=== PATIENT | female | born 1965 | race Caucasian/White ===

== ENCOUNTER 2016-08-24 07:00 | Inpatient (IN) | payer OTHER ==
[~2016-08-24] VITALS: Ht 165.1 cm; Wt 78.0 kg
[2016-08-25] VITALS (14 sets, daily range): BP systolic 128–165; BP diastolic 84–100
[2016-08-25] MEDS ORDERED: ceFAZolin sod 1 GM in NS 55 ML IVPB ONE (08:00)
[2016-08-25] MEDS ORDERED: Dexamethasone 20mg/5ml IVP ONE (08:00)
[2016-08-25] MEDS ORDERED: Naloxone 0.4mg/ml Inj IVP PRN (11:45)
[2016-08-25] MEDS ORDERED: AMLODIPINE BES2.5 MG ORAL (13:23)
[2016-08-25] MEDS ORDERED: XANAX2 MG ORAL (13:23)
[2016-08-25] MEDS ORDERED: AMBIEN10 M1 ORAL (13:23)
[2016-08-25] MEDS ORDERED: ROXICODONE30 M1 ORAL (13:23)
[2016-08-25] MEDS ORDERED: ADDERAL20 MG ORAL (13:24)
[2016-08-25] MEDS ORDERED: Thrombin 5000 units TOPIC ONE (13:38)
[2016-08-25] MEDS ORDERED: Bupivacaine 0.5% Inj 30 ml vial INJ ONE (13:39)
[2016-08-25] MEDS ORDERED: Bacitracin 50000 Units Vial ONE (13:39)
[2016-08-25] MEDS ORDERED: Vancomycin 1gm inj IVPB ONE (13:39)
[2016-08-25 13:45] LABS: APPEARANCE,URINE CLEAR; KETONES,URINE NEGATIVE (NEGATIVE); LEUKOCYTE ESTERASE ,URINE NEGATIVE (NEGATIVE); NITRITE,URINE NEGATIVE (NEGATIVE); PH,URINE 6 (4.5-8.0); PROTEIN,URINE NEGATIVE (NEGATIVE); UROBILINOGEN,URINE NORMAL MG/DL (0.0-1.0)
[2016-08-25] MEDS ORDERED: Lidocaine 1% Plain 30 ml INJ ONE ×2 (13:47→15:00)
[2016-08-25] MEDS ORDERED: Ropivacaine 5mg/ml Vial 20ml INJ ONE (13:48)
[2016-08-25 13:59] LABS: BACTERIA,URINE FEW /HPF; MUCUS,URINE FEW /LPF (NONE/OCC); SQUAMOUS EPITHELIAL CELL,UR FEW /LPF (NONE/OCC); WBC,URINE 0-2 /HPF (0 - 2)
[2016-08-25] MEDS ORDERED: oxyCODONE 5mg IR tab ORAL PRN ×3 (14:00)
[2016-08-25] MEDS ORDERED: PCA HYDROmorphone 1mg/ml 30 ML IV PRN (14:00)
[2016-08-25] MEDS ORDERED: traMADol 50mg tab ORAL PRN (14:00)
[2016-08-25] MEDS ORDERED: Zolpidem 5mg tab ORAL PRN (14:00)
[2016-08-25] MEDS ORDERED: Tylenol #3 tab (300mg/30mg) ORAL PRN (14:00)
[2016-08-25] MEDS ORDERED: ALPRAZolam 0.5mg tab ORAL PRN (14:00)
[2016-08-25] MEDS ORDERED: LR 1000ml 1,000 ML IVLG SCH (14:03)
--- NOTE | 2016-08-25 14:03 | Anethesia Preoperative Eval ---
Anesthesia Pre-op PMH/ROS General Date of Evaluation: Aug 25, 2016 Time of Evaluation: 14:56 Anesthesiologist: Khoi ASA Score: ASA 3 Mallampati Score Class I : Soft palate, uvula, fauces, pillars visible Class II: Soft palate, uvula, fauces visible Class III: Soft palate, base of uvula visible Class IV: Only hard plate visible Mallampati Classification: Class II Surgeon: Betsy Diagnosis: Neck Pain Surgical Procedure: ACDF C4-5,C5-6,C6-7 with plate Anesthesia History: none Social History: current smoker Family History: no anesthesia problems Allergies: Coded Allergies: No Known Allergies (Unverified , 08/24/16) Medications: see eMAR Past Medical History Cardiovascular: Reports: HTN Pulmonary: Reports: other - Smoker Gastrointestinal/Genitourinary: Reports: other - Hemorrhoids Neurologic/Psychiatric: Reports: depression/anxiety Musculoskeletal/Integumentary: Reports: DDD Anesthesia Pre-op Phys. Exam Physician Exam Last Vital Signs Date Time Temp Pulse Resp B/P Pulse Ox O2 Delivery O2 Flow Rate FiO2 08/25/16 13:12 97.8 94 20 128/84 100 Room Air Constitutional: NAD Neurologic: CN 2-12 intact Cardiovascular: RRR Respiratory: CTA Gastrointestinal: S/NT/ND Airway Exam Mallampati Score: Class II MO: full ROM: limited Teeth: intact Anesthesia Pre-op A/P Risk Assessment & Plan Assessment: ASA 3 Plan: GA, BIS, Glidescope Status Change Before Surgery: No Pre-Antibiotics Dru Grams Ancef IV Given Within 1 Hr of Incision: Yes Time Given: 15:26 Neal Westfall MD Aug 25, 2016 14:03
[2016-08-25] MEDS ORDERED: Surgicel 4in x 8in TOPIC ONE (14:07)
--- NOTE | 2016-08-25 14:07 | Immediate Post-Op Evaluation ---
Immediate Post-Op Evalulation Immediate Post-Op Evalulation Procedure: ACDF C4-5,C5-6, C6-7 Date of Evaluation: Aug 25, 2016 Time of Evaluation: 16:29 IV Fluids: 1000 LR Blood Products: 0 Estimated Blood Loss: 35 Urinary Output: 0 Blood Pressure Systolic: 147 Blood Pressure Diastolic: 100 Pulse Rate: 84 Respiratory Rate: 16 O2 Sat by Pulse Oximetry: 100 Temperature (Fahrenheit): 97 Pain Score (1-10): 3 Nausea: No Vomiting: No Complications 0 Patient Status: awake, reacts, patent, extubated, none Hydration Status: adequate Dru Grams Ancef IV Given Within 1 Hr of Incision: Yes Time Given: 15:26 Neal Westfall MD Aug 25, 2016 14:07
[2016-08-25] MEDS ORDERED: Midazolam 2mg/2ml Inj IVP PRN (14:15)
[2016-08-25] MEDS ORDERED: Metoclopramide 10mg/2ml Inj IVP PRN (14:15)
[2016-08-25] MEDS ORDERED: LORazepam Inj 2mg/ml 1ml IV PRN (14:15)
[2016-08-25] MEDS ORDERED: Oxycodone/Acetaminophen 5-325 ORAL PRN (14:15)
[2016-08-25] MEDS ORDERED: Norco 5mg/325mg tab ORAL PRN (14:15)
[2016-08-25] MEDS ORDERED: Ketorolac 60mg Inj IV PRN (14:15)
[2016-08-25] MEDS ORDERED: Ketorolac 30mg Inj IV PRN (14:15)
[2016-08-25] MEDS ORDERED: fentaNYL 100 mcg/2 mL IV PRN (14:15)
[2016-08-25] MEDS ORDERED: Norco 7.5mg/325mg tab ORAL PRN (14:15)
[2016-08-25] MEDS ORDERED: Labetalol 5mg/ml 20ml vial IV PRN (14:15)
[2016-08-25] MEDS ORDERED: Atropine Inj 1mg/10ml Syr IV PRN (14:15)
[2016-08-25] MEDS ORDERED: Hydromorphone 0.5mg/0.5ml inj IVP PRN (14:15)
[2016-08-25] MEDS ORDERED: DiphenhydrAMINE 50mg/ml Inj IVP PRN (14:15)
[2016-08-25] MEDS ORDERED: Meperidine 25mg/ml Inj IV PRN (14:15)
[2016-08-25] MEDS ORDERED: Acetaminophen (Non formulary) 100 ML IV ONE (14:30)
[2016-08-25] MEDS ORDERED: fentaNYL 100 mcg/2 mL IV ONE (15:00)
[2016-08-25] MEDS ORDERED: LR 1000ml ONE (15:00)
[2016-08-25] MEDS ORDERED: Labetalol 5mg/ml 20ml vial IV ONE (15:00)
[2016-08-25] MEDS ORDERED: Sterile Water Irrig 1000ml IRRIG ONE (15:00)
[2016-08-25] MEDS ORDERED: NS Irrig 1000ml ONE (15:00)
[2016-08-25] MEDS ORDERED: Propofol 10mg/ml 100ml btl IV ONE (15:00)
[2016-08-25] MEDS ORDERED: Zemuron 50mg/5ml Inj IV ONE (15:00)
[2016-08-25] MEDS ORDERED: fentaNYL 250mcg/5ml ONE (15:00)
--- NOTE | 2016-08-25 15:01 | Pre-Procedure Note/Attestation ---
Pre-Procedure Note/Attestation Complete Prior to Procedure Planned Procedure: not applicable Procedure Narrative: ALIF C4-5, C5-6, C6-7 Anterior Plate C4-5-6-7 Indications for Procedure Pre-Operative Diagnosis: Post Trauma Cervical Discogenic Myeloradiculopathy Attestation I attest that I discussed the nature of the procedure; its benefits; risks and complications; and alternatives (and the risks and benefits of such alternatives ), prior to the procedure, with the patient (or the patient's legal liability claims representative). I attest that, if there was a reasonable possibility of needing a blood transfusion, the patient (or the patient's legal liability claims representative) was given the [place] Department of Health Services standardized written summary, pursuant to the Serg Maria Isabel Blood Safety Act ([place] Health and Safety Code # 1645, as amended). I attest that I re-evaluated the patient just prior to the surgery and that there has been no change in the patient's H&P, except as documented below: GUILHERME PHOENIX Aug 25, 2016 15:01
[2016-08-25] MEDS ORDERED: HYDROmorphone 1mg/ml Carpuject SUBQ PRN (17:15)
[2016-08-25] MEDS ORDERED: Milk of Magnesia 30ml Ud ORAL PRN (17:30)
--- NOTE | 2016-08-25 18:01 | Brief Operative Note ---
Immediate Post Operative Note Operative Note Pre-op Diagnosis: Post Trauma Cervical Discogenic Myeloradiculopathy Procedure: Hemivertebrectomy with spinal cord decompresion: C4,5,6,7 Interbody Fusion C4-5, C5-6, C6-7 PEEK graft correction deformity C4-5, C5-6, C6-7 Anterior Plate C4-5-6-7 SSEP Microscope Xray Post-op Diagnosis: same as pre-op Findings: consistent w/pre-op dx studies Surgeon: Betsy [employer] Developer: Markus Anesthesiologist: Khoi Anesthesia: general Specimen: none Complications: none Condition: stable Estimated Blood Loss: minimal Drains: none Implant(s) used?: Yes GUILHERME PHOENIX Aug 25, 2016 18:01
[2016-08-25] MEDS: Docusate 100mg cap ORAL SCH (21:44)
[2016-08-25] MEDS: D5 1/2NS 1,000 ML IV SCH (21:45)
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
--- NOTE | 2016-08-25 22:48 | Operative Note - Dictated ---
DATE OF OPERATION: 08/25/2016 SURGEON: Mulugeta Meyer, Ph.D., MD. SHEET ROCK NAILER: Jun Aparicio M.D. ANESTHESIA: General intubation. ANESTHESIOLOGIST: Neal Westfall M.D. ADMITTING/PREOPERATIVE DIAGNOSIS: Posttraumatic cervical discogenic myeloradiculopathy. POSTOPERATIVE DIAGNOSIS: Posttraumatic cervical discogenic myeloradiculopathy. OPERATIVE PROCEDURE: 1. Anterior hemivertebrectomy with spinal cord deformity C4-C5, C5-C6, and C6-C7. 2. Interbody reconstruction fusion with peek interbody spacer, C4-C5, C5-C6, and C6-C7. Anterior internal plate fixation C4-C5, C6-C7 intraoperative fluoroscopy interpreted by surgeons. 3. High-power microscopic dissection SSEP monitoring. ESTIMATED BLOOD LOSS: Minimal. COMPLICATIONS: None. POSTOP CONDITION: Good/stable. DESCRIPTION OF PROCEDURE: The patient was brought to the operating room and in the supine position general anesthesia with intubation was induced. IV antibiotics and IV Decadron were administered 30 minutes prior to incision time. Anterior cervical spine was sterilely prepped and draped free in usual sterile fashion. A longitudinal left incision parallel in the medial aspect of left sternocleidomastoid muscle was sharply placed in the dermis and epidermis. Electrocautery dissection was carried to the subcutaneous tissue to the level of the platysmas muscle that was identified, isolated, and transected in line with the incision. Dissection was carried medial to the carotid sheath through the deep cervical and pretracheal fascia to the midline between the right and left longus colli muscles. A spinal needle was bent at 90 degree angle so as to avoid penetration greater than 3 mm was placed into this space under direct observation. A cross-table image/fluoroscopic image was obtained interpreted by surgeons demonstrating the correct level for further dissection. Level was marked. [place] were removed. Subperiosteal dissection not exceeding 3 mm in medial and lateral aspects of the longus colli muscles over the involved intervals. Retractors were placed. C6-C7: Anterior osteophyte was resected with Midas Mehran bur dissection under high-power magnification. Hemivertebrectomy, inferior C6, superior C7 to the posterior longitudinal ligament was resected. Spinal cord was decompressed. SSEP monitoring was stable. Interpositional graft to the appropriate dimensions lordotic peek graft containing biomaterial for fusion. Countersunk appropriately. Attention was turned to the C5-C6 interval. Anterior osteophyte was resected with Midas Mehran bur dissection. High-power magnification. Hemivertebrectomy, inferior C5, superior C6 to but not through the posterior longitudinal ligament. Posterior longitudinal ligament was resected. Decompression spinal cord. SSEP monitoring. Interpositional graft to the appropriate dimensions 6 mm lordotic peek graft containing biomaterial for fusion. Fit excellent. Attention was subsequently turned to the C4-C5 interval. Osteophyte resected. Hemivertebrectomy, inferior C4, superior C5 to the posterior longitudinal ligament. Posterior longitudinal ligament was resected. Spinal cord decompression. SSEP monitoring stable. Interpositional grafting with a 6 mm lordotic peek graft biomaterial. Countersunk appropriately. No cerebrospinal fluid leakage was noted anytime during the procedure. All traction on the neck removed (10 pounds maximum). Anterior internal plate fixation in a compressive fashion. C4-C5 and C6-C7. Fluoroscopic guidance demonstrated excellent alignment. The wound was irrigated antibiotic-containing saline. FloSeal was applied. Reapproximation of platysmas muscle with Vicryl suture material. Subcuticular reapproximation of dermis and epidermis. Transverse surgical strips followed application with sterile bandage. Maintained in place with tape. The patient was awakened, extubated in the operating room, and transported to the postoperative recovery in good stable condition. Mulugeta Meyer M.D. DR: NHI JOB#: [id number] CC:
[2016-08-25] MEDS: ceFAZolin sod 1 GM in D5W 55 ML IV SCH (23:09)
[2016-08-26] VITALS: BP 136/96
[2016-08-26 04:00] VITALS: BP 138/68
[2016-08-26] MEDS: D5 1/2NS 1,000 ML IV SCH (06:30)
[2016-08-26] MEDS: ceFAZolin sod 1 GM in D5W 55 ML IV SCH (06:30)
[2016-08-26] MEDS ORDERED: PCA shift volume MISC SCH (07:00)
[2016-08-26] MEDS ORDERED: Rate Change PCA 1 Each MISC PRN (07:45)
[2016-08-26 08:31] VITALS: BP 159/99
[2016-08-26] MEDS ORDERED: Docusate 100mg cap ORAL SCH (09:00)
[2016-08-26] MEDS ORDERED: D5 1/2NS 1000ml IV ONE (09:41)
[2016-08-26] MEDS ORDERED: Tubing IV Secondary IV ONE (09:41)
[2016-08-26 09:47] VITALS: BP 124/68
--- NOTE | 2016-08-26 09:47 | 48 Hour Post Anesthesia Eval ---
Post Anesthesia Evaluation Procedure: ACDF C4-5,C5-6, C6-7 Date of Evaluation: Aug 26, 2016 Time of Evaluation: 09:45 Blood Pressure Systolic: 124 0: 68 Pulse Rate: 74 Respiratory Rate: 20 Temperature (Fahrenheit): 97.6 O2 Sat by Pulse Oximetry: 98 Airway: patent Nausea: No Vomiting: No Pain Intensity: 2 Hydration Status: adequate Cardiopulmonary Status: stable Mental Status/LOC: patient returned to baseline Follow-up Care/Observations: n/a Post-Anesthesia Complications: none Follow-up care needed: ready to discharge LETICIA BUSCH M.D. Aug 26, 2016 09:47
[2016-08-26] MEDS: Docusate 100mg cap ORAL SCH (09:48)
--- NOTE | 2016-08-26 09:48 | Progress Note ---
DATE: 08/26/2016 ACUTE PAIN MANAGEMENT PHYSICIAN PROGRESS NOTE: MEDICATIONS: Medication administration record reviewed. Medications include Mylanta, Xanax, Norvasc, Cepacol, Catapres, Benadryl, Colace, Dilaudid, milk of magnesia, Narcan, Zofran, oxycodone, Protonix, and Ambien. LABORATORY STUDIES: No interval laboratory studies. OBJECTIVE: VITAL SIGNS: Afebrile. Pulse 104, respirations 18, oxygen saturation 99% on room air, and blood pressure 138/68. I spent over 60 minutes in consultation today. I saw the patient at the bedside with the nurse RN, Mor. I discussed the case with the surgeon, Dr. Meyer. Overnight, the patient did quite well. She did have some nausea postoperatively yesterday here but that was probably due to eating food too quickly. After dosing with Zofran, the nausea resolved, and the patient has been advancing her diet this morning without any difficulties or further nausea symptoms. After her neck surgery, the patient is breathing, swallowing, and phonating within normal limits. Dressing is clean and dry. Normal postoperative swelling is apparent. The patient is breathing comfortably and shows no accessory muscle use. The patient appears to be non-toxic. I did skilled nursing facility counselor the patient will be going to stop smoking. Overnight, the patient used the high-dose FABRICATION MANAGER, Dilaudid which I ordered. I worked very well. This morning, I transitioned her quickly to the oral oxycodone pills and stopped the FABRICATION MANAGER. The patient tolerated the pain levels and continue breakthrough Dilaudid and oral oxycodone pills here in the hospital. She also has Xanax available for anxiolysis. At home, the patient already has a prescription for oxycodone pills as well as good supply of Xanax tablets. The patient has been ambulating to the restroom without difficulty. She is voiding urine. She is using her incentive spirometer, which I instructed her to take home with her. At this point, I see no contraindication for discharge to her home. The patient does have a friend Serg. We will transfer the patient home once the surgeon, Dr. Meyer agrees on discharge planning. Tc Nogueira M.D. DR: DAIJA JOB#: [id number] CC:
--- NOTE | 2016-08-26 11:53 | Diagnostic Imaging Report ---
Indication: Neck Pain Findings: Fluoroscopic views of the cervical spine were obtained. Images obtained during anterior cervical fusion with localization images followed by corpectomy/discectomy/replacement and anterior compression plate placement at C4-C7. Impression: Intraoperative imaging
--- NOTE | 2016-08-28 12:07 | Discharge Summary ---
Discharge Summary Hospital Course Date of Admission Aug 25, 2016 at 12:30 Date of Discharge Aug 26, 2016 at 11:15 Admitting Diagnosis LYNN Beck is a 51 year old female who was admitted on Aug 25, 2016 at 12: 30 for Cervical Radiculopathy Procedures 08/25 - dr Meyer 1. Anterior edith vertebrectomy with spinal cord deformity C4-C5, C5-C6, and C6-C7. 2. Interbody reconstruction fusion with peek interbody spacer, C4-C5, C5-C6, and C6-C7. Anterior internal plate fixation C4-C5, C6-C7 intraoperative fluoroscopy interpreted by surgeons. 3. High-power microscopic dissection SSEP monitoring. Hospital Course patient with cervical radiculopathy admitted for elective surgery on 08/25 undergone ACDF C4-5,C5-6, C6-7 course of recovery uneventful pain management-effective ambulated with PT/OT-able to do IS at the bedside, used as directed able to tolerate diet voided freely cleared for discharge with fup as outpatient with surgeon DISCHARGE DIAGNOSES Posttraumatic cervical discogenic myeloradiculopathy. postoperative pain s/p 08/25 -Anterior edith vertebrectomy with spinal cord deformity C4-C5, C5-C6, and C6-C7. s/p 08/25 Interbody reconstruction fusion with peek interbody spacer, C4-C5, C5-C6, and C6-C7. Anterior internal plate fixation C4-C5, C6-C7 intraoperative fluoroscopy interpreted by surgeons. s/p 08/25 High-power microscopic dissection SSEP monitoring. Discharge Condition Upon Discharge: stable Discharge Disposition Patient was discharged to Home (01) Discharge Diagnoses: Discharge Instructions Discharge Instructions Special Instructions I have been assigned to complete a D/C Summary on this account. I was not involved in the patient management Yolanda Michael NP ([place]) Aug 28, 2016 12:07
== END 2016-08-26 11:15 | disposition home or self-care (01) | DRG 473 ==
LOC: SDSOVERFLO 08-25 12:30 → 3E 08-25 20:35
PROC: 0RG20A0 Fusion of 2 or more Cervical Vertebral Joints with Interbody Fusion Device, Anterior Approach, Anterior Column, Open Approach (ICD-10-PCS; principal; 2016-08-25 14:00)
DX: M50.021 Cervical disc disorder at C4-C5 level with myelopathy (principal); I10 Essential (primary) hypertension; M50.121 Cervical disc disorder at C4-C5 level with radiculopathy; W22.8XXS Striking against or struck by other objects, sequela; F17.200 Nicotine dependence, unspecified, uncomplicated; F90.9 Attention-deficit hyperactivity disorder, unspecified type; G47.00 Insomnia, unspecified; F41.9 Anxiety disorder, unspecified
CPT/HCPCS: 36415; 72040; 76001; 81003; 86850; 86900; 86901; 87081; 94003; 94150; J2405

== ENCOUNTER 2020-08-26 11:58 | Emergency (ER) | payer MEDICAID, OTHER ==
[~2020-08-26] VITALS: Ht 165.1 cm; Wt 78.9 kg
[~2020-08-26 11:58] MED LIST: ADDERAL20 MG ORAL; AMBIEN10 M1 ORAL; AMLODIPINE BES2.5 MG ORAL; ROXICODONE30 M1 ORAL; XANAX2 MG ORAL
[2020-08-26 12:08] VITALS: BP 137/94
[2020-08-26] MEDS ORDERED: ACETAMINOPHEN500 M3 ORAL (12:20)
[2020-08-26] MEDS ORDERED: ZOFRAN ODT8 MG ORAL (12:20)
--- NOTE | 2020-08-26 12:24 | Emergency Room Report ---
History of Present Illness General Chief Complaint: Flu Like Symptoms Present Illness HPI 55-year-old female here with fevers, chills, generalized malaise, loss of taste and smell for 5 days. Patient has not received a Covid vaccine. Unaware of whether she has been exposed to anybody that is Covid positive. Denies headaches, vision changes, chest pain, palpitations, shortness of breath, back pain, abdominal pain, diarrhea, dysuria. Allergies: Coded Allergies: No Known Allergies (Unverified , 08/24/16) COVID-19 Screening Contact w/high risk pt: No Experienced COVID-19 symptoms?: Yes COVID-19 Testing performed CD [employer] HEAD: No Nursing Documentation-PMH Hx Cardiac Problems: Yes Hx Hypertension: Yes Hx Cancer: No Hx Gastrointestinal Problems: Yes - cervical surgery Hx Neurological Problems: No Review of Systems All Other Systems: negative except mentioned in HPI Physical Exam Vital Signs Date Time Temp Pulse Resp B/P (MAP) Pulse Ox O2 Delivery O2 Flow Rate FiO2 08/26/20 12:08 99.9 103 20 137/94 (108) 94 Room Air Sp02 EP Interpretation: reviewed, normal General Appearance: no apparent distress, alert, non-toxic Head: normocephalic, atraumatic Eyes: bilateral eye normal inspection, bilateral eye PERRL ENT: hearing grossly normal, normal pharynx, no angioedema, normal voice Neck: full range of motion, supple/symm/no masses Respiratory: chest non-tender, lungs clear, normal breath sounds, speaking full sentences Cardiovascular #1: regular rate, rhythm, no edema Cardiovascular #2: 2+ carotid (R), 2+ carotid (L), 2+ radial (R), 2+ radial (L), 2+ dorsalis pedis (R), 2+ dorsalis pedis (L) Gastrointestinal: normal bowel sounds, non tender, soft, non-distended, no guarding, no rebound Rectal: deferred Genitourinary: normal inspection, no CVA tenderness Musculoskeletal: back normal, normal range of motion, gait/station normal, non- tender Neurologic: alert, motor strength/tone normal, oriented x3, sensory intact, responsive, speech normal Psychiatric: judgement/insight normal, memory normal, mood/affect normal, no suicidal/homicidal ideation Lymphatic: no adenopathy Medical Decision Making Diagnostic Impression: Primary Impression: Influenza-like symptoms Additional Impression: COVID-19 ER Course 55-year-old female here with generalized malaise and fever and loss of taste and smell. She had normal oxygen saturation and otherwise normal vital signs throughout her stay in the emergency department. Covid rapid antigen was positive. Chest x-ray largely unremarkable. Patient was told to return with any worsening symptoms. Symptoms are nonspecific and without red flag findings in history or physical exam for significant illness. The patient is overall well-appearing with a normal lung exam, nonlabored breathing and normal pulse oximetry. At this time I do not believe that the patient requires emergent labs or imaging. Symptoms are most consistent with a viral syndrome which in the setting of the global pandemic of novel COVID-19 the patient is suspected to have the infection. Little clinical suspicion for pneumonia at this time or other process that would require antibiotics. The patient is given close return precautions and follow-up instructions. I educated the patient that at this time this is a [facility] and is unable to support COVID-19 screening and people that are otherwise healthy and well-appearing without evidence of decompensation. I did educate the patient that he could have any number of viral infections to include influenza, rhinovirus or COVID-19. The patient was educated that they should self-quarantine for 14 days as a precaution and not come into contact with anyone that is elderly or has multiple chronic medical conditions. The patient was also educated of the signs and symptoms that indicate worsening of a respiratory virus and would require return to the emergency department which includes worsening symptoms and difficulty breathing. The patient is given close return precautions and follow-up instructions. Last Vital Signs Date Time Temp Pulse Resp B/P (MAP) Pulse Ox O2 Delivery O2 Flow Rate FiO2 08/26/20 12:08 99.9 103 20 137/94 (108) 94 Room Air Scripts Benzonatate* (TESSALON PERLE*) 100 Mg Capsule 100 MG ORAL THREE TIMES A DAY for 7 Days, [place] Prov: Bay Be M.D. 08/26/20 Cholecalciferol (Vitamin D3) (Vitamin D3*) 25 Mcg Capsule 25 MCG PO DAILY for Supplement, #30 CAP Prov: Bay Be M.D. 08/26/20 Ascorbic Acid* (VITAMIN C*) 500 Mg Tablet 500 MG ORAL DAILY, #30 TAB 0 Refills Prov: Bay Be M.D. 08/26/20 Ondansetron Odt* (ZOFRAN ODT*) 8 Mg Tab.rapdis 8 MG ORAL Q6H PRN for Nausea & Vomiting, #12 TAB Prov: Bay Be M.D. 08/26/20 Acetaminophen* (ACETAMINOPHEN EXTRA STRENGTH*) 500 Mg Tablet 500 MG ORAL Q6H, #20 TAB Prov: Bay Be M.D. 08/26/20 Referrals: [facility]. [facility] Patient Instructions: Cough, Adult Additional Instructions: Please follow-up with your primary care doctor in the next 1 to 3 days to discuss this emergency department visit and for reevaluation. If you have any new or worsening symptoms please return to the emergency department for reevaluation. Please maintain social distancing for 2 weeks. Bay Be M.D. Aug 26, 2020 12:24
[2020-08-26] MEDS ORDERED: VITAMIN C500 M1 ORAL (12:52)
[2020-08-26] MEDS ORDERED: VITAMIN D325 MC1 PO (12:52)
[2020-08-26] MEDS ORDERED: TESSALON PERLE100 MG ORAL (12:53)
--- NOTE | 2020-08-26 13:08 | Diagnostic Imaging Report ---
Procedure: XRAY Chest 1v Reason for study: Reason For Exam: COUGH Comparison films: None. FINDINGS: Radiograph is underpenetrated. There is right perihilar infiltrate. Some haziness also noted left lung base. Cardiac and mediastinal silhouette are within normal limits. CP angles are sharp. Patient status post cervical fusion. IMPRESSION: Right perihilar and left basilar infiltrates.
--- NOTE | 2020-08-26 13:41 | Diagnostic Imaging Report ---
EXAM: X-RAY XRAY Knee 3v LT CLINICAL HISTORY: Knee pain. COMPARISON: None FINDINGS: Total of 3 views of the left knee were obtained. Alignment is anatomic. There is no fracture, bony lesions or erosions. Joint spaces are unremarkable. Surrounding soft tissue is normal. IMPRESSION: NO ACUTE BONY ABNORMALITY.
== END 2020-08-26 13:50 | disposition home or self-care (01) ==
LOC: EMR 13:30
DX: U07.1 COVID-19 (principal); J11.1 Influenza due to unidentified influenza virus with other respiratory manifestations; I11.9 Hypertensive heart disease without heart failure
CPT/HCPCS: 71045; 73562; Z7502; 99284